=== PATIENT | female | born 1995 ===

== ENCOUNTER → 2023-08-27 | Outpatient (CLI) | payer BC ==
[2023-09-01 15:11] LABS: HPV 16 Negative (Negative); HPV 18 Negative (Negative); HPV OTHER HR TYPES Negative (Negative)
== END ==
LOC: LAB 11:53 → LAB SHORT 11:53
PROVIDERS: Family Medicine
DX: Z12.4 Encounter for screening for malignant neoplasm of cervix (principal)
CPT/HCPCS: 87624; G0145

== ENCOUNTER 2024-12-29 11:24 | Emergency (ER) | payer BC ==
[~2024-12-29] VITALS: Ht 165.1 cm; Wt 122.5 kg
[~2024-12-29 11:24] MED LIST: AMPDEX10 PO; ESTARYLLA 0.251 EACH PO; FLUTICASONE-SA1 EAC9 INH; MONT10T PO; Norco 5-325 Ta1 EACH PO; Ventolin/Prove6.7 GM INH; ZOLOFT50 MG PO
[2024-12-29] MEDS ORDERED: OZEMPIC0.25 MG/02 (11:46)
[2024-12-29 12:17] LABS: BASOPHILS ABSOLUTE AUTO 0.02 K/mm3 (0.00-0.23); BASOPHILS PERCENT AUTO 0 % (0-2); EOSINOPHILS ABSOLUTE AUTO 0.07 K/mm3 (0.00-0.68); EOSINOPHILS PERCENT AUTO 1 % (0-6); Hematocrit 42.9 % (33.0-51.0); Hemoglobin 14.6 g/dL (11.5-16.0); IMMATURE GRAN ABSOLUTE AUTO 0.02 K/mm3 (0.00-0.10); IMMATURE GRAN PERCENT AUTO 0 % (0-1); LYMPHOCYTES ABSOLUTE AUTO 3.47 K/mm3 (0.84-5.20); LYMPHOCYTES PERCENT AUTO 40 % (21-46); MONOCYTES ABSOLUTE AUTO 0.44 K/mm3 (0.16-1.47); MONOCYTES PERCENT AUTO 5 % (4-13); Mean Corpuscular HGB 28.9 pg (26.0-34.0); Mean Corpuscular Volume 85 fL (80-100); Mean Platelet Volume 10.7 fL (9.1-12.4); NEUTROPHILS ABSOLUTE AUTO 4.77 K/mm3 (1.96-9.15); NEUTROPHILS PERCENT AUTO 54 % (41-73); Platelet Count 301 K/mm3 (150-400); RDW Coefficient Variation 13.2 % (11.7-14.2); RDW Standard Deviation 41.1 fL (35.1-46.3); Red Blood Cell Count 5.05 M/mm3 (3.80-5.20); White Blood Cell Count 8.79 K/mm3 (4.00-11.30)
[2024-12-29 12:37] LABS: Albumin, Blood 3.5 g/dL (3.4-5.0); Albumin/Globulin Ratio 0.8 (0.8-1.8); Bilirubin, Total 0.4 mg/dL (0.1-1.0); Bun/Creatinine Ratio 30.3 (12.0-20.0); Calcium, Blood 8.9 mg/dL (8.5-10.1); Creatinine, Blood 0.56 mg/dL (0.40-1.00); Globulin, Blood 4.5 g/dL (2.2-4.0); Potassium, Blood 4.1 mmol/L (3.5-5.5)
[2024-12-29] MEDS ORDERED: NS 1,000 ML IV SCH ×2 (12:40→13:50)
[2024-12-29] MEDS ORDERED: Meclizine HCl 25 MG Tab PO ONE (13:50)
[2024-12-29 16:29] VITALS: BP 114/62
== END 2024-12-29 16:58 | disposition home or self-care (01) ==
LOC: ER 11:24
PROVIDERS: Student in an Organized Health Care Education/Training Program
DX: R55 Syncope and collapse (principal); Z79.899 Other long term (current) drug therapy
CPT/HCPCS: 71046; 71260; 80053; 81025; 84484; 84703; 85025; 85379; 93005; 93010; 99284-25; A9270; J7030; Q9967